=== PATIENT | female | born 2000 | race Caucasian/White ===

== ENCOUNTER 2023-08-22 17:29 | Emergency (ER) | payer SELFPAY ==
--- NOTE | 2023-08-22 17:40 | MHC.CARE ---
Larissa clinician called from [facility] counseling team, she reports pt endorsed SI with plan following a disciplinary meeting where she was being threatened with expulsion. Pt is under investigation with the school and does have a follow up meeting soon. Pt reportedly was initially written up due to an [place] protest. Pt identifies as an activist. She then stole 250 coffee cups from the coffee machine which is produced by [employer] and she is currently boycotting [employer]. Following the meeting with administrators pt threatened to jump into traffic and reported she cannot stop herself. Pt has a hx of self harm and in April she was having thoughts to hang herself or jump out of a window. Pt has limited contact with the counseling center and they are just seeing her today due to suicidal threats. 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 Larissa reports that it is highly likely that pt will get expelled and she also reported that pt is also doxing and the school is aware of this as well. secondary school teacher librarian clinical Lauren Romero will need to be reached.
[2023-08-22 17:59] VITALS: BP 137/95; PULSE 69; PULSE 94; RESP 14; TEMP 36.6; O2SAT 98
[2023-08-22 18:24] VITALS: RESP 14
--- NOTE | 2023-08-22 18:32 | PC.NURSE ---
pt NUBIA from her college where she was meeting with her therapist and disclosed that she has frequent SI thoughts with a plan (pt unwilling to disclose plan at this time). Pt originally unwilling to discuss anything with this RN, attempted to elope through doors, security and this RN verbally redirected patient back to chair where she was willing to sit and discuss plan of care. Pt changed over, provided urine sample and is now resting on bed in room, speaking on the phone in no apparent distress
[2023-08-22 18:39] LABS: Appearance Urine Clear; Color Urine Yellow; Glucose Urine UA Negative (Negative); Leukocyte Esterase Urine Negative (Negative); Nitrite Urine Negative (Negative); UMIC TRIGGER UACC YES; Urine Blood Small (1+) (Negative); Urine Ketones Negative (Negative); Urine Protein Negative (Neg-Trace)
[2023-08-22 18:46] LABS: Amphetamine Screen Urine Not Detected (Not Detect); Barbiturates, Urine Not Detected (Not Detect); Benzodiazepines Screen Urine Not Detected (Not Detect); Cannabinoid Screen Urine POSITIVE (Not Detect); Cocaine Screen Urine Not Detected (Not Detect); Fentanyl, urine Not Detected (Not Detect); Opiate Screen Urine Not Detected (Not Detect); Phencyclidine Screen Urine Not Detected (Not Detect)
--- NOTE | 2023-08-22 18:54 | ED.PSYCH ---
HPI - Psych General Chief Complaint: Psychiatric Symptoms Stated Complaint: Crisis eval Time Seen by Provider: 08/22/23 17:33 Source: patient Mode of arrival: EMS Limitations: no limitations History of Present Illness HPI Narrative: Patient is a 23-year-old female who presents emergency department via EMS coming for [facility]. She met with a counselor there from residential life in regards to her depression. She reports it being secondary to ?active ism with her friends? but reports that she does not ?want to get into it?. She reports having passive suicidal ideations since April of 2023 with a plan to walk into the street to get hit by a car. She states that she has no intention of acting upon this, reporting that she wants to be alive that she does not want to . She does state that she has a psychiatrist at the school by the 1st name of Charisse, it is unclear how frequently she meets with the psychiatrist. Nursing staff has advised me that patient's mother called in is requesting that patient be placed on a section due to her ongoing depression. Patient denies any prior suicide attempts. She denies any drug or alcohol usage. She denies any physical complaints Related Data Allergies Allergy/AdvReac Type Severity Reaction Status Date / Time No Known Allergies Allergy Verified 08/22/23 18:38 Review of Systems Review of Systems: Yes all other systems are reviewed and are negative [facility] Past Medical History Attestation statement: The following information was validated with the patient. Source: old records reviewed Social History Social History Smoked in Last 30 Days: No Use of substances other than those prescribed or required for medical reasons: Yes Substance Use Type: Marijuana Advance Directives: No Advance Directives Information Provided: No Healthcare Proxy: No Guardian: No Patient : No Physical Exam Vital Signs: Vital Signs: Last Vital Signs Temp 97.8 F 08/22/23 17:59 Pulse 69 08/22/23 17:59 Resp 14 08/22/23 18:24 BP 137/95 H 08/22/23 17:59 Pulse Ox 98 08/22/23 17:59 O2 Del Method Room Air 08/22/23 17:59 BMI result Body Mass Index 20.0 Appearance: Alert.?Oriented to person, place and time. No acute distress.?Normal affect. Eyes: Pupils equal, round and reactive to light.? ENT: Pharynx normal.?? Neck: Normal inspection.? Neck supple.?? CVS: Heart sounds normal. Normal heart rate and rhythm.? Pulses normal.?? Respiratory: No respiratory distress.? Lung sounds clear to auscultation bilaterally?? Abdomen: Soft and non-tender. Normoactive bowel sounds. No pulsatile mass.?? Skin: Skin warm and dry.? Normal skin color.? Normal skin turgor.?? Extremities: No lower extremity edema.? No calf ttp? Neuro: Moves all extremities spontaneously. Sensation intact bilaterally. CN II-XII intact. No focal neuro deficits. Ambulates with normal steady gait. Medical Decision Making Medical Decision Making [facility] Narrative: Patient is a 23-year-old female who presents emergency department for evaluation of suicidal ideations with a plan but no reported intent to act upon this secondary to ongoing depression. Was seen by counselor at her school today in voluntarily sent to the emergency department. After speaking with patient due to her reported SI with a plan, she was requesting to be discharged to return back to school, which I advised against due to her suicidality and being high-risk in a college student. Patient was placed on a section 12 pending care team evaluation. Serum labs will be obtained for medical clearance including toxicology. Differential Diagnosis Differential Diagnoses: The differential diagnosis associated with the presentation includes (Depression, anxiety, suicidal ideation) Admission/Observation Consideration of admission/observation: Escalation of care including admission/observation considered 20:00 placed in physician observation so that care team evaluation can ensue, she has on a section 12 for suicidal ideations with a plan though no reported intent act, high-risk patient, concern for her safety. At this time she has in no respiratory distress, vitals are stable. Lab Data [facility] Lab Attestation statement: I reviewed the patient's lab results. 08/22/23 19:12 08/22/23 19:12 Labs: Lab Results 08/22/23 08/22/23 Range/Units 18:26 19:12 WBC 11.4 H (4.8-10.8) X10*3/uL RBC 4.65 (4.20-5.50) X10*6/uL Hgb 13.6 (12.0-16.0) g/dl Hct 40.6 (37.0-47.0) % MCV 87.3 (80.0-98.0) fL MCH 29.2 (27.0-33.0) pg MCHC 33.5 (31.0-35.0) g/dl RDW 12.5 (11.0-16.0) % Plt Count 317 (160-400) X10*3/uL MPV 10.3 (9.4-12.3) fL Immature Gran % (Auto) 0.4 (0.0-0.4) % Neut % (Auto) 75.3 H (45-73) % Lymph % (Auto) 17.6 L (20-40) % [place] % (Auto) 5.0 (2-11) % Eos % (Auto) 1.1 (0-4) % Baso % (Auto) 0.6 (0-2) % Lymph # (Auto) 2.0 (1.2-4.9) X10*3/uL [place] # (Auto) 0.6 (0.1-1.2) X10*3/uL Eos # (Auto) 0.1 (0.0-0.4) X10*3/uL Baso # (Auto) 0.1 (0.0-0.2) X10*3/uL Abs Immat Gran (auto) 0.04 H (0.00-0.03) X10*3/uL Absolute Neuts (auto) 8.6 H (2.0-8.3) x10*3/uL Absolute Nucleated RBC 0.000 (0.0-0.012) X10*3/uL Nucleated RBC % (auto) 0.0 (0.0-0.2) /100WBC Sodium 140 (135-145) mmol/L Potassium 4.0 (3.3-5.1) mmol/L Chloride 104 (96-108) mmol/L Carbon Dioxide 24 (22-29) mmol/L Anion Gap 16 (12-20) BUN 8 L (9-16) mg/dL Creatinine 0.76 (0.5-1.4) mg/dL Estim Creat Clear Calc 100.6 Estimated GFR > 60 Random Glucose 99 (60-115) mg/dL Calcium 10.7 H (8.4-10.2) mg/dL Total Bilirubin 0.3 (0.0-1.0) mg/dL AST 23 (5-31) U/L ALT 21 (0-31) U/L Alkaline Phosphatase 133 H (39-117) U/L Total Protein 8.9 H (6.5-8.0) g/dL Albumin 5.0 (3.5-5.0) g/dL Beta HCG, Quant < 2 mIU/mL Urine Color Yellow Urine Appearance Clear Urine pH 8.0 (5.0-9.0) Ur Specific [place] 1.010 (1.005-1.025) Urine Protein Negative (Neg-Trace) mg/dL Urine Glucose (UA) Negative (Negative) mg/dL Urine Ketones Negative (Negative) mg/dL Urine Blood Small (1+) H (Negative) Urine Nitrite Negative (Negative) Ur Leukocyte Esterase Negative (Negative) Urine RBC 0-2 (0-2) /HPF Urine WBC 0-5 (0-5) /HPF Ur Squamous Epith Cells 3-5 (0-2) /HPF Urine Bacteria Trace (None Seen) Hyaline Casts 0-2 (0-2) /LPF Urine Opiates Screen Not Detected (Not Detect) Urine Fentanyl Screen Not Detected (Not Detect) Ur Barbiturates Screen Not Detected (Not Detect) Ur Phencyclidine Scrn Not Detected (Not Detect) Ur Amphetamines Screen Not Detected (Not Detect) U Benzodiazepines Scrn Not Detected (Not Detect) Urine Cocaine Screen Not Detected (Not Detect) U Marijuana (THC) Screen POSITIVE H (Not Detect) Ethyl Alcohol < 10 mg/dL COVID-19 (HINA) Negative (Negative) COVID-19 Clin Com See Note Independent Historian Clinical information obtained from an independent historian. History obtained from or confirmed by: EMS Discharge Plan Discharge Clinical Impression: Suicidal ideation Patient Disposition: Still a Patient Interventions: [place]-Suicide Risk Severity Scale Last Done: 08/22/23 18:21
[2023-08-22 18:59] LABS: Bacteria Urine Trace (None Seen); Hyaline Casts Urine 0-2 /LPF (0-2); RBC Urine 0-2 /HPF (0-2); WBC Urine 0-5 /HPF (0-5)
--- NOTE | 2023-08-22 19:07 | PC.NURSE ---
patient appears to remain relaxed at present seated in room asking appropriate questins in regard to rules of the pod. patient appears in no distress.
[2023-08-22 19:20] LABS: MANUAL DIFF FLAG NO
[2023-08-22 19:22] LABS: Basophils Absolute Auto 0.1 X10*3/uL (0.0-0.2); Basophils Percent Auto 0.6 % (0-2); Eosinophils Absolute Auto 0.1 X10*3/uL (0.0-0.4); Eosinophils Percent Auto 1.1 % (0-4); Hematocrit 40.6 % (37.0-47.0); Hemoglobin 13.6 g/dl (12.0-16.0); Imm Gran Abs Auto 0.04 X10*3/uL (0.00-0.03); Imm Gran Pct Auto 0.4 % (0.0-0.4); Lymphocytes Percent Auto 17.6 % (20-40); Mean Corpuscular HGB Conc 33.5 g/dl (31.0-35.0); Mean Corpuscular Hemoglobin 29.2 pg (27.0-33.0); Mean Corpuscular Volume 87.3 fL (80.0-98.0); Mean Platelet Volume 10.3 fL (9.4-12.3); Monocytes Absolute Auto 0.6 X10*3/uL (0.1-1.2); Neutrophils Absolute Auto 8.6 x10*3/uL (2.0-8.3); Neutrophils Percent Auto 75.3 % (45-73); Platelet Count 317 X10*3/uL (160-400); Red Blood Count 4.65 X10*6/uL (4.20-5.50); Red Cell Distribution Width 12.5 % (11.0-16.0); White Blood Count 11.4 X10*3/uL (4.8-10.8)
[2023-08-22 19:35] LABS: COVID-19 Test Negative (Negative); IDNOW Serial# 08D9AD1C
[2023-08-22 19:36] LABS: Alanine Aminotransferase 21 U/L (0-31); Alkaline Phosphatase 133 U/L (39-117); Anion Gap 16 (12-20); Aspartate Amino Transferase 23 U/L (5-31); Bilirubin Total 0.3 mg/dL (0.0-1.0); Blood Urea Nitrogen 8 mg/dL (9-16); Calcium 10.7 mg/dL (8.4-10.2); Carbon Dioxide 24 mmol/L (22-29); Chloride 104 mmol/L (96-108); Creatinine Clr Calc Pharmacy 100.6; Estimated Glomerular Filt Rate > 60; Ethanol < 10 mg/dL; Glucose Random 99 mg/dL (60-115); Sodium 140 mmol/L (135-145); Total Protein 8.9 g/dL (6.5-8.0)
[2023-08-22 20:19] LABS: HCG Quantitative < 2 mIU/mL
--- NOTE | 2023-08-22 22:57 | MHC.CARE ---
Completed safety plan with pt Jessica will utilize the following crisis hotlines for crisis support: [facility] Crisis Services: [phone], this crisis team serves all of [facility]. They can come to your home to do an assessment, do an assessment via zoom, or you can go to their office, [address] [place] [address]. . If your symptoms do not improve or worsen, call them for a crisis assessment or return to an emergency department.? [facility]: 14/01 Care and Support Line at [phone]? The National Suicide Prevention Lifeline at If Jessica feels their symptoms worsen, they will return to [facility], or go to [facility].? Step 1: Warning Signs:? __Feeling ?trapped? __Withdraw/isolate __Conflict/tension- interpersonal conflict____ Step 2: Internal coping strategies ? Things I can do to take my mind off my problems? without contacting another person:? __Spend time outside with dog? __meditate _smoke marijuana ____ Step 3: People and social settings that provide distraction:? Name/Number:_Juan Antonio [phone]____ Name/Number: __Mary [phone]____ Place: _Gym Place:_[facility] Step 4: People whom I can ask for help:? 1. Name Phone__Kassi [phone]___ 2. Name Phone__Monty [phone]___ 3. Name Phone__Chino [phone]____
[2023-08-23 05:51] VITALS: BP 124/87; PULSE 63; RESP 16; TEMP 36.7; O2SAT 98
--- NOTE | 2023-08-23 07:39 | PC.NURSE ---
Assumed care of patient at 0700, pt appears to be sleeping, respirations even and unlabored, no apparent distress noted at this time. Plan is for discharge with mom when she gets here
== END 2023-08-23 15:24 | disposition home or self-care (01) ==
PROVIDERS: Nurse Practitioner Family; Emergency Provider Emergency Medicine Emergency Medical Services
DX: F32.A Depression, unspecified (principal); R45.851 Suicidal ideations; Z11.52 Encounter for screening for COVID-19; F12.90 Cannabis use, unspecified, uncomplicated; Z91.52 Personal history of nonsuicidal self-harm; Z79.899 Other long term (current) drug therapy
CPT/HCPCS: 80053; 80307; 81001; 84702; 85025; 87635; 99285; S9485